=== PATIENT | female | born 1975 | race Caucasian/White ===

== ENCOUNTER 2017-01-02 22:17 | Emergency (ER) | payer SELFPAY ==
[2017-01-02 22:33] VITALS: BP 115/65; PULSE 79; O2SAT 97
[2017-01-02] MEDS ORDERED: NORCO 5/325 MG PO ONE (22:38)
[2017-01-02] MEDS ORDERED: NORCO 5/325 MG ONE (22:42)
[2017-01-02] MEDS ORDERED: ZOFRAN ODT 4 MG PO ONE (22:45)
[2017-01-02] MEDS ORDERED: ZOFRAN ODT 4 MG ONE (22:45)
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
--- NOTE | 2017-01-03 09:50 | XRAY ---
Indication: Pain following fall. Comparison: None 3 views of the left ankle obtained. No bony, articular, or soft tissue abnormalities.
== END 2017-01-02 23:36 | disposition home or self-care (01) ==
LOC: ED 22:17
DX: S93.402A Sprain of unspecified ligament of left ankle, initial encounter (principal); X50.0XXA Overexertion from strenuous movement or load, initial encounter; M25.572 Pain in left ankle and joints of left foot
CPT/HCPCS: 73610; 99282; Q0162; A9270-GY

== ENCOUNTER 2017-01-06 18:57 | Emergency (ER) | payer SELFPAY ==
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
[2017-01-06 19:37] LABS: BASOPHIL % 0.4 % (0.0-0.4); Granulocytes % 47.4 % (36.0-66.0); Lymphocytes % 41.9 % (24.0-44.0); Mean Cell Volume 97.7 fl (78-100); Monocytes % 7.3 % (0.0-12.0); Platelet Count 247 K/mm3 (150-450); Red Blood Count 3.85 M/mm3 (4.1-5.4); Red Cell Distribution Width 13.4 % (11.5-14.0); White Blood Count 5.3 K/mm3 (4.0-10.5)
[2017-01-06 19:39] LABS: Mean Corpuscular Hemoglobin 32.4 pg (26-32)
[2017-01-06 19:41] LABS: ADD URINE CULTURE? YES (NO); Bilirubin NEGATIVE (NEGATIVE); Blood TRACE NON-HEM Ery/ul (0-5); COMPLETE URINE MICROSCOPIC? YES; Collection Type CLEAN CATCH; Glucose NEGATIVE (NEGATIVE); Leukocyte Esterase 1+ (NEGATIVE)
[2017-01-06 19:42] LABS: Bacteria PACKED /HPF (NEGATIVE); Epithelial Cells FEW /HPF (FEW)
[2017-01-06 19:47] LABS: INR 1.11 (0.8-3.0); PROTIME 12.3 SECONDS (9.95-12.35)
[2017-01-06 20:03] LABS: ALBUMIN 3.6 g/dL (3.4-5.0); ALKALINE PHOSPHATASE 29 U/L (46-116); ANION GAP 15.5 MEQ/L (5-15); CHLORIDE 110 mEq/L (98-107); Carbon Dioxide 25.5 mEq/L (21-32); Glucose 97 MG/DL (70-110); Potassium 3.9 mEq/L (3.5-5.1); SGOT/AST 23 U/L (15-37); SGPT/ALT 16 U/L (12-78); SODIUM 147 mEq/L (136-145); Total Protein 7.2 gm/dL (6.4-8.2)
[2017-01-06 20:09] LABS: BLOOD UREA NITROGEN 8 mg/dL (9-20)
[2017-01-06 20:13] LABS: ACETAMINOPHEN < 2.0 ug/ml (10-30)
[2017-01-06] MEDS ORDERED: TYLENOL 325 MG PO STA (21:49)
[2017-01-06] MEDS ORDERED: Macrobid 100MG Capsule PO ONE (21:50)
[2017-01-06] MEDS ORDERED: Macrobid 100MG Capsule ONE (21:53)
[2017-01-06] MEDS ORDERED: TYLENOL 325 MG ONE (21:54)
[2017-01-06 22:48] VITALS: BP 101/59; PULSE 68; O2SAT 98
== END 2017-01-06 22:50 | disposition home or self-care (01) ==
LOC: ED 18:57
DX: F32.9 Major depressive disorder, single episode, unspecified (principal); R45.851 Suicidal ideations
CPT/HCPCS: 36415; 80053; 80307; 81000; 85025; 85610; 87077; 87086; 87186; 90791; 93041; 99284; G0481; Q3014; A9270-GY

== ENCOUNTER 2017-07-31 15:16 | Emergency (ER) | payer OTHER ==
[2017-07-31] MEDS ORDERED: Eye-Stream Solution OP ONE (15:31)
[2017-07-31] MEDS ORDERED: TETRACAINE 0.5% STERI-UNIT SOL OP STA (15:31)
[2017-07-31] MEDS ORDERED: Fluor-I-Strip/Ful-Flo OP ONE ×2 (15:31→16:46)
[2017-07-31] MEDS ORDERED: TETRACAINE 0.5% STERI-UNIT SOL OP ONE (15:34)
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
[2017-07-31] MEDS ORDERED: Sodium Chloride 0.9% 1000 ML 2,000 ML ONE (16:23)
[2017-07-31] MEDS ORDERED: Eye-Stream Solution ONE (16:47)
[2017-07-31] MEDS ORDERED: Acular OPTH SOL OP ONE ×2 (17:35→17:39)
[2017-07-31] MEDS ORDERED: Ciloxan OPHTH OP ONE (17:35)
[2017-07-31] MEDS ORDERED: Ciloxan OPHTH ONE (17:39)
[2017-07-31 18:03] VITALS: BP 122/74; PULSE 68; O2SAT 99
== END 2017-07-31 18:03 | disposition home or self-care (01) ==
LOC: ED 15:16
DX: S05.02XA Injury of conjunctiva and corneal abrasion without foreign body, left eye, initial encounter (principal); H10.9 Unspecified conjunctivitis; H61.21 Impacted cerumen, right ear
CPT/HCPCS: 66999; 99283; 99284; A9270-GY

== ENCOUNTER 2020-02-18 03:12 | Emergency (ER) | payer OTHER ==
--- NOTE | 2020-02-18 03:28 | ERPHSYRPT ---
- History of Present Illness Time Seen by Provider: 02/18/20 03:27 Source: patient Exam Limitations: no limitations Patient Subjective Stated Complaint: cut finger Occurred: just prior to arrival Method of Injury: incised Quality: constant, aching Severity of Pain-Max: mild Severity of Pain-Current: mild Extremities Pain Location: 5th finger: right (tiny cut) Modifying Factors: Improves With: nothing Associated Symptoms: none Allergies/Adverse Reactions: codeine Allergy (Verified 02/18/20 03:16) Sulfa (Sulfonamide Antibiotics) Allergy (Verified 02/18/20 03:16) aspirin Adverse Reaction (Mild, Verified 02/18/20 03:16) Home Medications: Alprazolam 1 mg [Xanax 1 mg] 1 mg PO TID 03/31/14 [History] Estrogens,Conjugated [Premarin] 1 tab PO DAILY 02/18/20 [History] Hx Tetanus, Diphtheria Vaccination/Date Given: Yes Hx Influenza Vaccination/Date Given: No Hx Pneumococcal Vaccination/Date Given: No Travel Risk - International Travel Have you traveled outside of the country in past 3 weeks: No - Coronavirus Screening Are you exhibiting any of the following symptoms?: No - Review of Systems Constitutional: No Symptoms Eyes: No Symptoms Ears, Nose, & Throat: No Symptoms Respiratory: No Symptoms Cardiac: No Symptoms Abdominal/Gastrointestinal: No Symptoms Genitourinary Symptoms: No Symptoms Musculoskeletal: Injury Skin: No Symptoms Neurological: No Symptoms Psychological: No Symptoms Endocrine: No Symptoms Hematologic/Lymphatic: No Symptoms Immunological/Allergic: No Symptoms All Other Systems: Reviewed and Negative - Past Medical History Pertinent Past Medical History: Yes Neurological History: Migraines ENT History: No Pertinent History Cardiac History: No Pertinent History Respiratory History: No Pertinent History Endocrine Medical History: No Pertinent History Musculoskeletal History: Other GI Medical History: No Pertinent History History: Other Psycho-Social History: Anxiety, Depression Female Reproductive Disorders: Endometriosis, Other Other Medical History: BROKE NECK 2009 - Past Surgical History Past Surgical History: Yes Neuro Surgical History: No Pertinent History Cardiac: No Pertinent History Respiratory: No Pertinent History Gastrointestinal: No Pertinent History Musculoskeletal: No Pertinent History Female Surgical History: Section, Hysterectomy, Tubal Ligation Other Surgical History: t&a - Social History Smoking Status: Current every day smoker How long have you smoked: YRS Exposure to second hand smoke: Yes Drug Use: none Patient Lives Alone: No - Nursing Vital Signs Nursing Vital Signs: Initial Vital Signs Temperature 98.3 F 02/18/20 03:19 Pulse Rate 83 02/18/20 03:19 Respiratory Rate 18 02/18/20 03:19 Blood Pressure 133/68 02/18/20 03:19 O2 Sat by Pulse Oximetry 97 02/18/20 03:19 Pain Scale Pain Intensity 0 - Physical Exam General Appearance: no apparent distress, alert Eyes, Ears, Nose, Throat Exam: normal ENT inspection Neck Exam: normal inspection Cardiovascular/Respiratory Exam: chest non-tender Abdominal Exam: non-tender Back Exam: other (N/E) Shoulder Exam: normal inspection Elbow/Forearm Exam: normal inspection Wrist Exam: normal inspection Hand Exam: laceration (one cm distal right little finger, FROM, NVI, stable) Neuro/Tendon Exam: normal sensation, normal motor functions, normal tendon functions, responds to pain, no evidence tendon injury Mental Status Exam: alert, oriented x 3, cooperative Skin Exam: normal color Procedures - Laceration/Wound Repair Right Distal Volar Finger Wound Location: Right, hand Wound's Depth, Shape: superficial Wound Explored: clean Irrigated: No Hibiclens Prep: Yes Wound Repaired With: Dermabond Sterile Dressing Applied?: No Splint Applied?: No Sling Applied?: No - Course Nursing assessment & vital signs reviewed: Yes - Progress Progress: improved Progress Note: 02/18/20 03:45 Tiny lac distal RLF. Cleaned and closed with dermabond. Counseled pt/family regarding: diagnosis - Departure Departure Disposition: Home Clinical Impression: Laceration Condition: Stable Critical Care Time: No Referrals: MELONIE JAMES [Primary Care Provider] - Additional Instructions: Follow the recommended wound care advice. Recheck if any problems.
[2020-02-18 03:52] VITALS: BP 91/58; PULSE 79; O2SAT 98
== END 2020-02-18 03:53 | disposition home or self-care (01) ==
LOC: ED 03:12
DX: S61.216A Laceration without foreign body of right little finger without damage to nail, initial encounter (principal); W45.8XXA Other foreign body or object entering through skin, initial encounter; Y92.9 Unspecified place or not applicable
CPT/HCPCS: 12001; 99283

== ENCOUNTER 2020-07-29 11:29 | Emergency (ER) | payer OTHER ==
[2020-07-29] MEDS ORDERED: TORAdol 30 mg Injection IM ONE (11:48)
[2020-07-29] MEDS ORDERED: TORAdol 30 mg Injection ONE (11:53)
--- NOTE | 2020-07-29 11:55 | ERPHSYRPT ---
- History of Present Illness Source: patient Exam Limitations: no limitations Patient Subjective Stated Complaint: PT states "I was ripping carpet out all weekend and I am not sure what I did to my wrist but I cannot twist my arm at all and it really hurts." Triage Nursing Assessment: Pt presented alert and oriented X 3, skin wpd Pt ambulates with an upright steady gait, able to speakin clear full sentences. Pt holding her right wrist out and stiff, no swelling, brusing noted. Physician History: 45 yo wf w R wrist pain after pulling up carpet 3 days ago. Pt denies any trauma and is R handed. Pain is moderate and worse w movement. Chest pain/dyspnea are denied. Occurred: days ago (3 days) Method of Injury: other (Pulling up carpet) Quality: constant Severity of Pain-Max: moderate Severity of Pain-Current: moderate Extremities Pain Location: wrist: right Modifying Factors: Improves With: movement Associated Symptoms: none, No back pain, No chills, No chest discomfort, No chest pain, No dyspnea, No fever, No jaw pain, No nausea, No neck pain, No sweating, No short of breath Allergies/Adverse Reactions: codeine Allergy (Verified 02/18/20 03:16) Sulfa (Sulfonamide Antibiotics) Allergy (Verified 02/18/20 03:16) aspirin Adverse Reaction (Mild, Verified 02/18/20 03:16) Home Medications: ALPRAZolam 1 MG [Xanax 1 mg] 1 mg PO TID 03/31/14 [History] Estrogens,Conjugated [Premarin] 1 tab PO DAILY 02/18/20 [History] Hx Tetanus, Diphtheria Vaccination/Date Given: Yes Hx Influenza Vaccination/Date Given: No Hx Pneumococcal Vaccination/Date Given: No Immunizations Up to Date: Yes Travel Risk - International Travel Have you traveled outside of the country in past 3 weeks: No - Coronavirus Screening Are you exhibiting any of the following symptoms?: No Close contact with a COVID-19 positive Pt in past 14-21 Days: No - Vaccine Status Have you recieved a Covid-19 vaccination: No - Review of Systems Constitutional: No Symptoms Eyes: No Symptoms Ears, Nose, & Throat: No Symptoms Respiratory: No Symptoms Cardiac: No Symptoms Abdominal/Gastrointestinal: No Symptoms Genitourinary Symptoms: No Symptoms Skin: No Symptoms Neurological: No Symptoms Psychological: No Symptoms Endocrine: No Symptoms Hematologic/Lymphatic: No Symptoms Immunological/Allergic: No Symptoms - Past Medical History Pertinent Past Medical History: Yes Neurological History: Migraines ENT History: No Pertinent History Cardiac History: No Pertinent History Respiratory History: No Pertinent History Endocrine Medical History: No Pertinent History Musculoskeletal History: Other GI Medical History: No Pertinent History History: Other Psycho-Social History: Anxiety, Depression Female Reproductive Disorders: Endometriosis, Other Other Medical History: BROKE NECK 2009 - Past Surgical History Past Surgical History: Yes Neuro Surgical History: No Pertinent History Cardiac: No Pertinent History Respiratory: No Pertinent History Gastrointestinal: No Pertinent History Musculoskeletal: No Pertinent History Female Surgical History: Section, Hysterectomy, Tubal Ligation Other Surgical History: t&a - Social History Smoking Status: Current every day smoker How long have you smoked: years Exposure to second hand smoke: Yes Drug Use: none Patient Lives Alone: No Significant Family History: no pertinent family hx - Female History Hx Last Menstrual Period: full hysterectomy Hx Now: No - Nursing Vital Signs Nursing Vital Signs: Initial Vital Signs Temperature 98.1 F 07/29/20 11:34 Pulse Rate 92 H 07/29/20 11:34 Respiratory Rate 20 07/29/20 11:34 Blood Pressure 101/56 07/29/20 11:34 O2 Sat by Pulse Oximetry 99 07/29/20 11:34 Pain Scale Pain Intensity 3 - Physical Exam General Appearance: no apparent distress Eyes, Ears, Nose, Throat Exam: normal ENT inspection, TMs normal, pharynx normal, moist mucous membranes Neck Exam: normal inspection, non-tender, supple, full range of motion, No Brudzinski, No Kernig's, No meningismus Cardiovascular/Respiratory Exam: normal breath sounds, regular rate/rhythm, heart sounds normal Abdominal Exam: non-tender, soft Back Exam: normal inspection, normal range of motion, CVA tenderness, vertebral tenderness Shoulder Exam: normal inspection, non-tender, no evidence of injury, normal ROM Elbow/Forearm Exam: normal inspection Wrist Exam: pain (TTP distal R wrist on ulnar side. Good radial pulse, distal sensation, and capillary return/Pain w flexion-extension and medial-lateral movement) Hand Exam: normal inspection, non-tender, no evidence of injury DTR - Upper Extremity Exam: bicep (R): 2+, bicep (L): 2+ Neuro/Tendon Exam: normal sensation, normal motor functions, normal tendon functions, responds to pain Mental Status Exam: alert, oriented x 3, cooperative Skin Exam: normal color, warm, dry, No rash SpO2 Interpretation: normal SpO2: 99 O2 Delivery: Room Air - Course Nursing assessment & vital signs reviewed: Yes Ordered Tests: Active Orders 24 hr Category Date Time Status Wali Bandage Application -[facility] STAT Care 07/29/20 11:48 Completed Medication Summary Discontinued Medications Generic Name Dose Route Start Last Admin Trade Name Raymundo PRN Reason Stop Dose Admin Ketorolac Tromethamine 60 mg 07/29/20 11:48 07/29/20 11:57 Toradol 30 Mg Injection IM 07/29/20 11:49 60 mg STAT ONE Administration Ketorolac Tromethamine Confirm 07/29/20 11:53 Toradol 30 Mg Injection Administered 07/29/20 11:54 Dose 60 mg .ROUTE .STK-MED ONE - Progress Progress Note: 07/29/20 11:55 60mg IM Toradol/Wali wrap R wrist per nursing NVI Counseled pt/family regarding: need for follow-up - Departure Departure Disposition: Home Clinical Impression: Right wrist tendonitis Condition: Stable Critical Care Time: No Referrals: MELONIE JAMES [Primary Care Provider] - Instructions: Common Wrist Injuries (DC) Additional Instructions: Wali wrap for 2-3 days Toradol as needed for pain Activity as tolerated Follow up with your family MD for continued pain Prescriptions: Ketorolac Tromethamine [Toradol] 10 mg PO TID PRN #10 tablet PRN Reason: Pain
[2020-07-29 12:24] VITALS: O2SAT 99
[2020-07-29 12:28] VITALS: BP 112/63; PULSE 86
== END 2020-07-29 12:29 | disposition home or self-care (01) ==
LOC: ED 11:29
DX: M77.8 Other enthesopathies, not elsewhere classified (principal)
CPT/HCPCS: 96372; 99284; J1885

== ENCOUNTER 2021-11-03 21:00 | Emergency (ER) | payer OTHER ==
[2021-11-03 21:16] VITALS: O2SAT 97
[2021-11-03] MEDS ORDERED: BENADRYL 50 MG/ML IM ONE (21:38)
[2021-11-03] MEDS ORDERED: TORAdol 30 mg Injection IM ONE (21:39)
[2021-11-03] MEDS ORDERED: Compazine 10 MG/2 ML IM ONE (21:39)
[2021-11-03] MEDS ORDERED: BENADRYL 50 MG/ML ONE (21:41)
[2021-11-03] MEDS ORDERED: TORAdol 30 mg Injection ONE (21:41)
[2021-11-03] MEDS ORDERED: Compazine 10 MG/2 ML ONE (21:41)
--- NOTE | 2021-11-03 21:45 | ERPHSYRPT ---
- History of Present Illness Source: patient Exam Limitations: no limitations Patient Subjective Stated Complaint: pt states "I have had a bad headache since Wednesday. 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 Pain is 8/10 and described as pressure. Bright lights make the pain worse. She has had nausea/vomiting wo fever/diarrhea/cough/coryza. Home CV19 test neg today. Pain is described as typical for pt. Head trauma is denied. Timing/Duration: other (2 days) Quality: pressure Head Pain Location: frontal (L hemispheric) Severity of Pain-Max: severe Severity of Pain-Current: severe Recent Head Trauma: occasional headaches Modifying Factors: Improves With: exposure to light. Worsens With: movement, rest, noise, position Associated Symptoms: nausea/vomiting, sensitive to light, No confusion, No dizziness, No fatigue, No facial pain, No fever/chills, No flushing, No light- headedness, No loss of consciousness, No nasal congestion, No nasal drainage, No neck pain, No numbness in legs/feet, No rash, No sweating, No scotoma, No seizures, No sinus infection, No speech problems, No stiff neck, No trouble walking, No vision changes, No visual disturbance, No weakness Previous symptoms: same symptoms as today Allergies/Adverse Reactions: codeine Allergy (Verified 11/03/21 21:05) Sulfa (Sulfonamide Antibiotics) Allergy (Verified 11/03/21 21:05) aspirin Adverse Reaction (Mild, Verified 11/03/21 21:05) Home Medications: ALPRAZolam 1 MG [Xanax 1 mg] 1 mg PO TID 03/31/14 [History] Estrogens,Conjugated [Premarin] 1 tab PO DAILY 02/18/20 [History] Escitalopram Oxalate 5 mg PO DAILY 11/03/21 [History] Hx Tetanus, Diphtheria Vaccination/Date Given: Yes Hx Influenza Vaccination/Date Given: No Hx Pneumococcal Vaccination/Date Given: No Travel Risk - International Travel Have you traveled outside of the country in past 3 weeks: No - Coronavirus Screening Are you exhibiting any of the following symptoms?: Yes Symptoms: Vomiting/Diarrhea, Headaches/Body Aches/Fatigue Close contact with a COVID-19 positive Pt in past 14-21 Days: No - Vaccine Status Have you recieved a Covid-19 vaccination: No - Review of Systems Constitutional: No Symptoms Eyes: No Symptoms Ears, Nose, & Throat: No Symptoms Respiratory: No Symptoms Cardiac: No Symptoms Abdominal/Gastrointestinal: No Symptoms, Nausea, Vomiting Genitourinary Symptoms: No Symptoms Musculoskeletal: No Symptoms Skin: No Symptoms Neurological: No Symptoms, Headache Psychological: No Symptoms Endocrine: No Symptoms Hematologic/Lymphatic: No Symptoms Immunological/Allergic: No Symptoms - Past Medical History Pertinent Past Medical History: Yes Neurological History: Migraines ENT History: No Pertinent History Cardiac History: No Pertinent History Respiratory History: No Pertinent History Endocrine Medical History: No Pertinent History Musculoskeletal History: Other GI Medical History: No Pertinent History History: Other Psycho-Social History: Anxiety, Depression Female Reproductive Disorders: Endometriosis, Other Other Medical History: BROKE NECK 2009 - Past Surgical History Past Surgical History: Yes Neuro Surgical History: No Pertinent History Cardiac: No Pertinent History Respiratory: No Pertinent History Gastrointestinal: No Pertinent History Musculoskeletal: No Pertinent History Female Surgical History: Section, Hysterectomy, Tubal Ligation Other Surgical History: t&a - Social History Smoking Status: Former smoker How long have you smoked: years Exposure to second hand smoke: Yes Drug Use: none Patient Lives Alone: No Significant Family History: no pertinent family hx - Female History Hx Now: No - Nursing Vital Signs Nursing Vital Signs: Initial Vital Signs Temperature 97.6 F 11/03/21 21:06 Pulse Rate 84 11/03/21 21:06 Respiratory Rate 22 11/03/21 21:06 Blood Pressure 128/63 11/03/21 21:06 O2 Sat by Pulse Oximetry 97 11/03/21 21:06 Pain Scale Pain Intensity 5 WNL - Physical Exam General Appearance: no apparent distress (In pain) Eye Exam: PERRL/EOMI, eyes nml inspection Ears, Nose, Throat Exam: normal ENT inspection, TMs normal, pharynx normal, moist mucous membranes Neck Exam: normal inspection, non-tender, supple, full range of motion, No meningismus, No mass, No Brudzinski, No Kernig's Respiratory Exam: normal breath sounds, lungs clear, airway intact Cardiovascular Exam: regular rate/rhythm, normal heart sounds, normal peripheral pulses, capillary refill <2 sec, No murmur Gastrointestinal/Abdominal Exam: soft, normal bowel sounds, No tenderness Back Exam: normal inspection, normal range of motion, No CVA tenderness, No vertebral tenderness Extremity Exam: normal inspection, normal range of motion Mental Status Exam: alert, oriented x 3, 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 Exam: normal hearing, normal speech, PERRL, tongue midline, No abnormal eye position, No abnormal gag reflex, No abnormal pupil position, No abnormal speech, No facial asymmetry, No facial droop, No facial paresthesias, No facial weakness, No gaze palsy, No hearing deficit (R), No hearing deficit (L), No tongue deviation to R, No tongue deviation to L Coordination/Gait Exam: normal gait, normal cerebellar function Motor/Sensory Exam: no motor deficit, no sensory deficit, no pronator drift, negative Babinski's sign DTR Exam: bicep (R): 2+, bicep (L): 2+, knee (R): 2+, knee (L): 2+ Skin Exam: normal color, warm, dry, No rash Lymphatic Exam: No adenopathy SpO2 Interpretation: normal SpO2: 97 O2 Delivery: Room Air - Course Nursing assessment & vital signs reviewed: Yes Ordered Tests: Medication Summary Discontinued Medications Generic Name Dose Route Start Last Admin Trade Name Raymundo PRN Reason Stop Dose Admin Diphenhydramine HCl 25 mg 11/03/21 21:38 11/03/21 21:42 Diphenhydramine Hcl 50 Mg/Ml Vial IM 11/03/21 21:39 25 mg STAT ONE Administration Diphenhydramine HCl Confirm 11/03/21 21:41 Diphenhydramine Hcl 50 Mg/Ml Vial Administered 11/03/21 21:42 Dose 50 mg .ROUTE .STK-MED ONE Ketorolac Tromethamine 30 mg 11/03/21 21:39 11/03/21 21:42 Ketorolac Tromethamine 30 Mg/Ml Inj IM 11/03/21 21:40 30 mg STAT ONE Administration Ketorolac Tromethamine Confirm 11/03/21 21:41 Ketorolac Tromethamine 30 Mg/Ml Inj Administered 11/03/21 21:42 Dose 30 mg .ROUTE .STK-MED ONE Prochlorperazine Edisylate 10 mg 11/03/21 21:39 11/03/21 21:42 Prochlorperazine Edisylate 10 Mg/2 Ml Vial IM 11/03/21 21:40 10 mg STAT ONE Administration Prochlorperazine Edisylate Confirm 11/03/21 21:41 Prochlorperazine Edisylate 10 Mg/2 Ml Vial Administered 11/03/21 21:42 Dose 10 mg .ROUTE .STK-MED ONE - Progress Progress: improved Progress Note: 11/03/21 21:48 30mg IM Toradol/10mg IM Compazine/25mg IM Benadryl 11/03/21 22:14 Pt's pain improved Counseled pt/family regarding: diagnosis, need for follow-up - Departure Departure Disposition: Home Clinical Impression: Migraine Condition: Stable Critical Care Time: No Referrals: MELONIE JAMES [Primary Care Provider] - Follow up/PCP as directed Instructions: Headache, Adult (DC) Additional Instructions: Return to ER for increasing pain/Focal weakness/Temperature greater than 100.5
[2021-11-03 22:11] VITALS: BP 118/60; PULSE 72
== END 2021-11-03 22:20 | disposition home or self-care (01) ==
LOC: ED 21:00
DX: G43.909 Migraine, unspecified, not intractable, without status migrainosus (principal); H53.143 Visual discomfort, bilateral; R11.2 Nausea with vomiting, unspecified; Z79.899 Other long term (current) drug therapy; Z28.310 Unvaccinated for COVID-19
CPT/HCPCS: 96372; 99283; J1200; J1885

== ENCOUNTER 2023-12-02 14:07 | Emergency (ER) | payer OTHER ==
[2023-12-02 14:55] LABS: Appearance Turbid (Clear); Bilirubin Negative (Negative); Blood Large (Negative); Glucose, Urine Negative (Negative); Ketones Negative (Negative); Leukocyte Esterase Large (Negative); Nitrite Negative (Negative); Ph 5.5 (4.6-8.0); Protein,Urine Dip 30 (Negative); Urobilinogen 0.2 mg/dL (0.2)
[2023-12-02 15:09] LABS: Epithelial Cells Rare /HPF (None Seen); WBC >100 /HPF (0-5)
[2023-12-02 15:10] LABS: ADD URINE CULTURE? YES (NO); Bacteria Moderate /HPF (None Seen)
[2023-12-02 15:12] LABS: HCG URINE TEST NEGATIVE (NEGATIVE)
[2023-12-02] MEDS ORDERED: BENADRYL 50 MG/ML ONE (15:28)
[2023-12-02] MEDS ORDERED: TORAdol 30 mg Injection ONE (15:28)
[2023-12-02] MEDS ORDERED: TYLENOL 325 MG ONE (15:29)
[2023-12-02] MEDS ORDERED: Sodium Chloride 0.9% 1000 ML 1,000 ML ONE (15:29)
[2023-12-02] MEDS ORDERED: Reglan 10 MG/2 ML ONE (15:29)
[2023-12-02] MEDS: TYLENOL 325 MG PO ONE (15:32)
[2023-12-02] MEDS: Sodium Chloride 0.9% 1000 ML 1,000 ML IV STA (15:34)
[2023-12-02] MEDS: BENADRYL 50 MG/ML IV ONE (15:36)
[2023-12-02] MEDS: TORAdol 30 mg Injection IV ONE (15:37)
[2023-12-02] MEDS: Reglan 10 MG/2 ML IV ONE (15:38)
--- NOTE | 2023-12-02 15:53 | ERPHSYRPT ---
- History of Present Illness Time Seen by Provider: 12/02/23 14:18 Source: patient Exam Limitations: no limitations Patient Subjective Stated Complaint: C/O Migraine Headache since yesterday morning with N/V. Denies any falls, traumas, injuries. Triage Nursing Assessment: Patient ambulated back to ER. She is alert and oriented. S/S of pain present; lights in room dimmed for patient. No active vomiting at this time. Skin tone normal. Physician History: 48-year-old female with history of anxiety/depression, migraines presented in the ER with complains of frontal headache for the last couple of days with progressive worsening. Patient reports associated nausea and couple of episodes of nonprojectile, nonbilious vomiting without hematemesis. Patient rates 78/10 intensity sharp throbbing headache, aggravated with bright light, noise and better with lying in a cool dark place. Patient denies any visual disturbance, difficulty speech, numbness tingling or focal weakness. Reports having similar migraines multiple times in the past. She has taken her routine medication which did not help much. Denies any neck pain, fever or chills. Allergies/Adverse Reactions: codeine Allergy (Verified 12/02/23 14:32) Sulfa (Sulfonamide Antibiotics) Allergy (Verified 12/02/23 14:32) aspirin Adverse Reaction (Mild, Verified 12/02/23 14:32) Home Medications: ALPRAZolam 1 MG [Xanax 1 mg] 1 mg PO TID 03/31/14 [History] Lumateperone Tosylate [Caplyta] 21 mg PO HS 12/02/23 [History] Ondansetron [Ondansetron Odt ] 4 mg PO Q4-6HPRN PRN 12/02/23 [History] SUMAtriptan succinate [Imitrex 50 mg] 50 mg PO DAILY PRN 12/02/23 [History] Hx Tetanus, Diphtheria Vaccination/Date Given: Yes Hx Influenza Vaccination/Date Given: No Hx Pneumococcal Vaccination/Date Given: No Immunizations Up to Date: Yes Travel Risk - International Travel Have you traveled outside of the country in past 3 weeks: No - Emerging Infectious Disease Are you exhibiting symptoms associated with any current EIDs: Yes Symptoms: Headaches/Body Aches/ - Review of Systems Constitutional: No Symptoms Eyes: No Symptoms Ears, Nose, & Throat: No Symptoms Respiratory: No Symptoms Cardiac: No Symptoms Abdominal/Gastrointestinal: Nausea, Vomiting Genitourinary Symptoms: No Symptoms Musculoskeletal: No Symptoms Skin: No Symptoms Neurological: Headache Psychological: Anxiety, Depression Endocrine: No Symptoms Hematologic/Lymphatic: No Symptoms Immunological/Allergic: No Symptoms - Past Medical History Pertinent Past Medical History: Yes Neurological History: Migraines ENT History: No Pertinent History Cardiac History: No Pertinent History Respiratory History: No Pertinent History Endocrine Medical History: No Pertinent History Musculoskeletal History: Other GI Medical History: No Pertinent History History: Other Psycho-Social History: Anxiety, Depression Female Reproductive Disorders: Endometriosis, Other Other Medical History: BROKE NECK 2009 - Past Surgical History Past Surgical History: Yes Neuro Surgical History: No Pertinent History Cardiac: No Pertinent History Respiratory: No Pertinent History Gastrointestinal: No Pertinent History Musculoskeletal: No Pertinent History Female Surgical History: Section, Hysterectomy, Tubal Ligation Other Surgical History: t&a Significant Family History: no pertinent family hx - Female History Hx Last Menstrual Period: 2 WEEKS Hx Now: No (hysterectomy) - Social History Smoking Status: Former smoker How long have you smoked: years Exposure to second hand smoke: No Drug Use: none Patient Lives Alone: No - Social Determinants of Health Will the patient participate in the screening: Yes Do you worry about a steady place to live?: No Do you have any problems with any of the following?: No known problems In the past 12 months,have you had to go without utilities?: No Transportation Issues: No Has anyone in your support network made you feel unsafe?: No Have you or anyone in your house had to go without enough: No - Nursing Vital Signs Nursing Vital Signs: Initial Vital Signs Pulse Rate 70 12/02/23 14:35 Respiratory Rate 20 12/02/23 14:35 Blood Pressure 92/58 12/02/23 14:35 O2 Sat by Pulse Oximetry 98 12/02/23 14:35 Pain Scale Pain Intensity 8 - Physical Exam General Appearance: no apparent distress, alert, anxiety Eye Exam: PERRL/EOMI Ears, Nose, Throat Exam: normal ENT inspection, TMs normal, pharynx normal, moist mucous membranes Neck Exam: normal inspection, non-tender, supple, full range of motion Respiratory Exam: normal breath sounds, lungs clear Cardiovascular Exam: regular rate/rhythm, normal heart sounds Gastrointestinal/Abdominal Exam: soft, normal bowel sounds, No tenderness Mental Status Exam: alert, oriented x 3, cooperative tester 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 products Exam: normal hearing, normal speech, PERRL Coordination/Gait Exam: normal finger to nose, normal gait, normal cerebellar function, negative Romberg's sign Motor/Sensory Exam: no motor deficit, no sensory deficit, no pronator drift, negative Babinski's sign DTR Exam: bicep (R): 2+, bicep (L): 2+, knee (R): 2+, knee (L): 2+ Skin Exam: normal color SpO2 Interpretation: normal SpO2: 98 O2 Delivery: Room Air Ordered Tests: Active Orders 24 hr Category Date Time Status IV Insertion STAT Care 12/02/23 15:07 Active CULTURE,URINE Stat Lab 12/02/23 14:26 Received HCG QUALITATIVE, URINE Stat Lab 12/02/23 Completed UA W/RFX UR CULTURE Stat Lab 12/02/23 14:26 Completed Medication Summary Discontinued Medications Generic Name Dose Route Start Last Admin Trade Name Freq PRN Reason Stop Dose Admin Acetaminophen 975 mg 12/02/23 15:07 12/02/23 15:32 Acetaminophen 325 Mg Tablet PO 12/02/23 15:08 975 mg STAT ONE Administration Acetaminophen Confirm 12/02/23 15:29 Acetaminophen 325 Mg Tablet Administered 12/02/23 15:30 Dose 975 mg .ROUTE .STK-MED ONE Diphenhydramine HCl 25 mg 12/02/23 15:07 12/02/23 15:36 Diphenhydramine Hcl 50 Mg/Ml Vial IV 12/02/23 15:08 25 mg STAT ONE Administration Diphenhydramine HCl Confirm 12/02/23 15:28 Diphenhydramine Hcl 50 Mg/Ml Vial Administered 12/02/23 15:29 Dose 50 mg .ROUTE .STK-MED ONE Sodium Chloride 1,000 mls @ 999 mls/hr 12/02/23 15:07 12/02/23 15:34 Sodium Chloride 0.9% 1000 Ml IV 12/02/23 16:07 999 mls/hr .Q1H1M STA Administration Sodium Chloride Confirm 12/02/23 15:29 Sodium Chloride 0.9% 1000 Ml Administered 12/02/23 15:30 Dose 1,000 mls @ ud .ROUTE .STK-MED ONE Ketorolac Tromethamine 30 mg 12/02/23 15:07 12/02/23 15:37 Ketorolac Tromethamine 30 Mg/Ml Inj IV 12/02/23 15:08 30 mg STAT ONE Administration Ketorolac Tromethamine Confirm 12/02/23 15:28 Ketorolac Tromethamine 30 Mg/Ml Inj Administered 12/02/23 15:29 Dose 30 mg .ROUTE .STK-MED ONE Metoclopramide HCl 10 mg 12/02/23 15:07 12/02/23 15:38 Metoclopramide Hcl 10 Mg/2 Ml Vial IV 12/02/23 15:08 10 mg STAT ONE Administration Metoclopramide HCl Confirm 12/02/23 15:29 Metoclopramide Hcl 10 Mg/2 Ml Vial Administered 12/02/23 15:30 Dose 10 mg .ROUTE .STK-MED ONE Lab/Rad Data: Laboratory Results 12/02/23 12/02/23 Range/Units Unknown 14:26 Urine Color Yellow (Yellow) Urine Appearance Turbid A (Clear) Urine pH 5.5 (4.6-8.0) Ur Specific [place] 1.020 (1.005-1.030) Urine Protein 30 (Negative) Urine Glucose (UA) Negative (Negative) mg/dL Urine Ketones Negative (Negative) Urine Blood Large A (Negative) Urine Nitrite Negative (Negative) Urine Bilirubin Negative (Negative) Urine Urobilinogen 0.2 (0.2) mg/dL Ur Leukocyte Esterase Large A (Negative) Urine Microscopic RBC 3-5 (0-5) /HPF Urine Microscopic WBC >100 A (0-5) /HPF Ur Epithelial Cells Rare (None Seen) /HPF Urine Bacteria Moderate A (None Seen) /HPF Urine Culture Reflexed YES (NO) Urine HCG, Qual NEGATIVE (NEGATIVE) - Progress Progress: improved, re-examined Air Movement: good Progress Note: 12/02/23 16:33 48-year-old is evaluated in the ER for frontal headache. She has history of migraine and similar headaches multiple times in the past. She has nonfocal neuroexam, no signs of meningismus stable vitals. Given Toradol Reglan and Benadryl for symptomatic relief, on reevaluation she is much improved. This is not the worst headache of her life, do not think she needs CT imaging or any other workup. Stable for discharge with outpatient follow-up with primary care and neurology. Discussed signs symptoms of worsening renal return to ER which she is understanding. Blood Culture(s) Obtained: No Antibiotics given: No Counseled pt/family regarding: diagnosis, need for follow-up Medical Desision Making - Diagnostic Testing Diagnostic test were ordered, analyzed, and reviewed by me: No - Risk of complications The pt has a mod risk of morbidity or mortality based on: Need for prescription drug management - Departure Departure Disposition: Home Clinical Impression: Migraine Qualifiers: Migraine type: unspecified Status migrainosus presence: without status migrainosus Intractability: not intractable Qualified Code(s): G43.909 - Migraine, unspecified, not intractable, without status migrainosus Condition: Stable Critical Care Time: No Referrals: MELONIE JAMES [Primary Care Provider] - Follow up with PCP 1 day Instructions: Headache, Adult (DC) Additional Instructions: Continue with your home medications for headache as recommended. Follow-up with primary care and neurology for reevaluation. Return to ER for intractable headache, vomiting, difficulty movements of neck, numbness tingling focal weakness or if develop fever chills etc.
[2023-12-02 17:25] VITALS: BP 110/81; PULSE 47; RESP 14; O2SAT 99
== END 2023-12-02 17:27 | disposition home or self-care (01) ==
LOC: ED 14:07
DX: G43.909 Migraine, unspecified, not intractable, without status migrainosus (principal); R11.2 Nausea with vomiting, unspecified; Z79.899 Other long term (current) drug therapy
CPT/HCPCS: 36000; 81001; 81025; 87077; 87086; 87186; 96374; 96375; 99284; J1200; J1885; A9270-GY

== ENCOUNTER 2024-04-16 13:25 | Emergency (ER) | payer OTHER ==
[2024-04-16 13:54] VITALS: RESP 20; TEMP 97.8
--- NOTE | 2024-04-16 14:12 | ERPHSYRPT ---
- History of Present Illness Time Seen by Provider: 04/16/24 13:50 Source: patient Exam Limitations: no limitations Patient Subjective Stated Complaint: PT states "I have been coughing and congested since kota krys and I think I pulled a muscle in my chest coughing so much it hurt to move and cough." Triage Nursing Assessment: Pt presented alert and oriented X 3, skin pwd. Pt ambulates with an upright steady gait, able to speak in raspy full sentences. PT holds her chest when she coughs. Physician History: The patient presents with chest tightness. Chest tightness has been present since April 10, 2024, described as a sensation of 'tightness' without radiation. They have not experienced vomiting for a couple of days and have not eaten during this time. They have a slight cough and congestion, with minimal trouble breathing. Mucinex has been used to manage these symptoms, and they are able to produce some sputum with their cough. During the review of symptoms, they report a sore throat but deny any ear pain. Timing/Duration: day(s) (6) Cough Quality/Degree: moderate, dry cough Possible Cause: no prior episodes Modifying Factors: Improves With: nothing. Worsens With: coughing, deep breath Associated Symptoms: chest pain/soreness, cough, headache, nasal congestion, harman al drainage, sore throat, No fever, No chills Allergies/Adverse Reactions: codeine Allergy (Verified 12/02/23 14:32) Sulfa (Sulfonamide Antibiotics) Allergy (Verified 12/02/23 14:32) aspirin Adverse Reaction (Mild, Verified 12/02/23 14:32) Home Medications: ALPRAZolam 1 MG [Xanax 1 mg] 1 mg PO TID 03/31/14 [History] Lumateperone Tosylate [Caplyta] 21 mg PO HS 12/02/23 [History] Ondansetron [Ondansetron Odt ] 4 mg PO Q4-6HPRN PRN 12/02/23 [History] SUMAtriptan succinate [Imitrex 50 mg] 50 mg PO DAILY PRN 12/02/23 [History] Hx Tetanus, Diphtheria Vaccination/Date Given: Yes Hx Influenza Vaccination/Date Given: No Hx Pneumococcal Vaccination/Date Given: No Immunizations Up to Date: No Travel Risk - International Travel Have you traveled outside of the country in past 3 weeks: No - Emerging Infectious Disease Are you exhibiting symptoms associated with any current EIDs: Yes Symptoms: Cough: New Onset - Review of Systems All Other Systems: Reviewed and Negative - Past Medical History Pertinent Past Medical History: Yes Neurological History: Migraines ENT History: No Pertinent History Cardiac History: No Pertinent History Respiratory History: No Pertinent History Endocrine Medical History: No Pertinent History Musculoskeletal History: Other GI Medical History: No Pertinent History History: Other Psycho-Social History: Anxiety, Depression Female Reproductive Disorders: Endometriosis, Other Other Medical History: BROKE NECK 2009 - Past Surgical History Past Surgical History: Yes Neuro Surgical History: No Pertinent History Cardiac: No Pertinent History Respiratory: No Pertinent History Gastrointestinal: No Pertinent History Musculoskeletal: No Pertinent History Female Surgical History: Section, Hysterectomy, Tubal Ligation Other Surgical History: t&a Significant Family History: no pertinent family hx - Female History Hx Last Menstrual Period: hysterectomy Hx Now: No - Social History Smoking Status: Former smoker How long have you smoked: years Exposure to second hand smoke: No Drug Use: none Patient Lives Alone: No - Social Determinants of Health Will the patient participate in the screening: Yes Do you worry about a steady place to live?: No Do you have any problems with any of the following?: No known problems In the past 12 months,have you had to go without utilities?: No Transportation Issues: No Has anyone in your support network made you feel unsafe?: No Have you or anyone in your house had to go without enough: No - Nursing Vital Signs Nursing Vital Signs: Initial Vital Signs Temperature 97.8 F 04/16/24 13:49 Pulse Rate 59 L 04/16/24 13:49 Respiratory Rate 20 04/16/24 13:49 Blood Pressure 135/60 04/16/24 13:49 O2 Sat by Pulse Oximetry 100 04/16/24 13:49 Pain Scale Pain Intensity 2 - Physical Exam General Appearance: no apparent distress Ears, Nose, Throat Exam: pharyngeal erythema, No tonsillar exudate Neck Exam: normal inspection, non-tender, supple, full range of motion Respiratory Exam: normal breath sounds, airway intact, diminished breath sounds, No respiratory distress Cardiovascular Exam: regular rate/rhythm, capillary refill <2 sec Gastrointestinal/Abdomen Exam: soft, No tenderness, No distention, No mass, No guarding, No rebound Neurologic Exam: alert, oriented x 3, cooperative Skin Exam: normal color, warm, dry, No rash SpO2 Interpretation: normal SpO2: 100 O2 Delivery: Room Air - Course Nursing assessment & vital signs reviewed: Yes Ordered Tests: Active Orders 24 hr Category Date Time Status CHEST 1 VIEW (PORTABLE) Stat Exams 04/16/24 13:57 Completed Lab/Rad Data: Laboratory Results 04/16/24 Range/Units 14:10 Influenza Type A Ag NEGATIVE (NEGATIVE) Influenza Type B Ag NEGATIVE (NEGATIVE) RSV (PCR) NEGATIVE (NEGATIVE) SARS-CoV-2 (PCR) NEGATIVE (NEGATIVE) Group A Strep Antibody NOT DETECTED (NEGATIVE) - Progress Progress: improved Air Movement: good Progress Note: This patient presents with symptoms suspicious for likely viral upper respiratory infection and associated laryngitis. Differential includes bacterial pneumonia, sinusitis, allergic rhinitis. Do not suspect underlying cardiopulmonary process. I considered, but think unlikely, dangerous causes of this patients symptoms to include ACS, CHF or COPD exacerbations, pneumonia, pneumothorax. Patient is nontoxic appearing and not in need of emergent medical intervention. COVID, Flu, RSV, Strep neg Plan: Prednisone, reassurance, over the counter medications, discharge with PCP followup Blood Culture(s) Obtained: No Antibiotics given: No Counseled pt/family regarding: lab results, diagnosis, need for follow-up, rad results Medical Desision Making - Diagnostic Testing Diagnostic test were ordered, analyzed, and reviewed by me: Yes Radiological Interpretation: Interpreted by me - Risk of complications The pt has a mod risk of morbidity or mortality based on: Need for prescription drug management - Departure Departure Disposition: Home Clinical Impression: Viral URI with cough, Laryngitis Condition: Good Critical Care Time: No Referrals: MELONIE JAMES [Primary Care Provider] - Follow up/PCP as directed Instructions: Bronchitis, Adult ED Prescriptions: predniSONE [Prednisone] 50 mg PO DAILY 5 Days #5 tablet
[2024-04-16 14:42] LABS: Group A Strep NOT DETECTED (NEGATIVE)
[2024-04-16 14:54] LABS: INFLUENZA A NEGATIVE (NEGATIVE); INFLUENZA B NEGATIVE (NEGATIVE); RESPIRATORY SYNCTIAL VIRUS NEGATIVE (NEGATIVE); SARS-CoV-2 Xpert Express NEGATIVE (NEGATIVE)
[2024-04-16 15:32] VITALS: BP 128/57; PULSE 57
--- NOTE | 2024-04-16 19:09 | XRAY ---
Indication: Cough. Comparison: None Portable chest demonstrates normal heart, lungs, and bony thorax.
[2024-04-16 22:29] VITALS: O2SAT 100
== END 2024-04-16 15:37 | disposition home or self-care (01) ==
LOC: ED 13:25
DX: J06.9 Acute upper respiratory infection, unspecified (principal); J04.0 Acute laryngitis; R07.89 Other chest pain
CPT/HCPCS: 0241U; 71045; 87651; 99284; 99283